=== PATIENT | male | born 1975 | race Caucasian/White ===

== ENCOUNTER 2023-06-09 12:25 | Emergency (ER) | payer OTHER, SELFPAY ==
[2023-06-09] VITALS (7 sets, daily range): BP systolic 135–148; BP diastolic 84–101; PULSE 57–66; RESP 16; TEMP 36.7–36.9; O2SAT 93–97; BMI 30.6
[2023-06-09] MEDS: SIMETHICONE/SOD BICARB/CIT AC 1 EACH GRAN.EF.PK PO (14:08)
--- NOTE | 2023-06-09 14:25 | ED.GENADULT ---
HPI - General Adult General Chief complaint: Unspecified Complaint, Adult Stated complaint: Food lodged in esophagus since last night Time Seen by Provider: 06/09/23 12:30 History of Present Illness HPI narrative: This 48-year-old male comes in with report of food bolus in his esophagus since last evening. He was eating some meat at about 6:30 p.m. and states that he has not been able to successfully swallow since then. This is not a new situation for him. He states that he did have a dilation done about fiber 6 years ago and more recently he has needed to forcefully push food down with swallowing hard. He has not been successful since last evening however. He is otherwise in good health. Related Data Home Medications Medication Instructions Recorded Confirmed metoprolol succinate 50 mg 50 mg PO DAILY 06/09/23 06/09/23 tablet,extended release 24 hr Allergies Allergy/AdvReac Type Severity Reaction Status Date / Time No Known Drug Allergies Allergy Verified 06/09/23 12:33 Review of Systems Status of ROS: Reports: 10 or more systems reviewed and unremarkable except as noted in History and below Narrative: Constitutional: No fevers, no weight gain or loss. Eyes: No discharge. No vision changes. HENT: No congestion, no sore throat, no ear pain. Cardiovascular: No chest pain, no palpitations. Respiratory: No shortness of breath, no wheezes, no cough. Gastrointestinal: No abdominal pain, no vomiting, no diarrhea. Unable to swallow without spitting up. Genitourinary: No dysuria, no hematuria. Musculoskeletal: Normal range of motion. Skin: No rashes, no pruritis. Neurological: No dizziness, weakness, sensory change, speech change. Endo/Heme/Allergies: No bruising or bleeding. No polydipsia. Pysch: no suicidality, no anxiety, no insomnia. All other systems reviewed and are negative. Exam Narrative: Exam Narrative: Constitutional: Well-developed, well-nourished, no acute distress. HEENT: Normocephalic, atraumatic. Neck: Normal range of motion. Nontender. Supple. Heart: Intact distal pulses. Lungs: No chest discomfort. No wheezes, rhonchi, or rales. Abdomen: Nontender. Back: Normal range of motion. Extremities: Normal range of motion. No injury. Skin: Intact. No rash. Warm. No erythema or pallor. Neurologic: No altered sensation. No weakness. Alert and oriented. Psychiatric: No suicidality. No anxiety or depression. No insomnia. Nursing notes and vitals signs are reviewed. Const: Vital Signs, click to edit/add: Vital Signs - 24 hr 06/09/23 12:34 06/09/23 13:17 Temperature 98.5 F Pulse Rate 57 L Pulse Rate [Pulse Oximeter] 59 L Respiratory Rate 16 16 Blood Pressure 135/84 Blood Pressure [Ri ght Upper Arm] 148/99 H Pulse Oximetry 95 94 Oxygen Delivery Me thod Room Air Course Vital Signs Vital signs: Initial Vital Signs Temperature 98.5 F 06/09/23 12:34 Temperature Source Temporal Artery Scan 06/09/23 12:34 Pulse Rate 59 L 06/09/23 12:34 Pulse Rhythm Regular 06/09/23 12:34 Pulse Strength 3+ Normal 06/09/23 12:34 Respiratory Rate 16 06/09/23 12:34 Blood Pressure 148/99 H 06/09/23 12:34 Blood Pressure Mean 115 H 06/09/23 12:34 Blood Pressure Position Sitting 06/09/23 12:34 Pulse Oximetry 95 06/09/23 12:34 Oxygen Delivery Method Room Air 06/09/23 12:34 Vital Signs Temperature 98.5 F 06/09/23 12:34 Pulse Rate 59 L 06/09/23 12:34 Respiratory Rate 16 06/09/23 12:34 Blood Pressure 148/99 H 06/09/23 12:34 Pulse Oximetry 95 06/09/23 12:34 Oxygen Delivery Method Room Air 06/09/23 12:34 Temperature 98.5 F 06/09/23 12:34 Pulse Rate 57 L 06/09/23 13:17 Respiratory Rate 16 06/09/23 13:17 Blood Pressure 135/84 06/09/23 13:17 Pulse Oximetry 94 06/09/23 13:17 Oxygen Delivery Method Room Air 06/09/23 12:34 Medications Administered Medications: Discontinued Medications Generic Name Dose Route Start Last Admin Trade Name Freq PRN Reason Stop Dose Admin Simethicone/Sodium Bicarb/Citric Ac 1 each 06/09/23 13:45 06/09/23 14:08 Simethicone/Sod Bicarb/Cit Ac 1 Each Gran.Ef.Pk PO 06/09/23 13:46 0.5 each ONCE ONE Administration Medical Decision Making MDM Narrative Medical decision making narrative: This patient comes in with a food bolus of meat in his esophagus. He did attempt to swallow initially with water and was unable to do so. An IV was then established where he did receive glucagon 1 mg. He will also was given sublingual nitroglycerin 0.4 mg and pop rocks. After taking the pop rocks he was able to successfully swallow and he feels back to normal. I did speak with the surgeon on-call with the anticipation that he would need an upper GI today but this plan is now canceled. I did advise the patient to follow-up electively for a dilation. Discharge Plan Discharge Clinical Impression: Food impaction of esophagus Patient Disposition: Home, Self-Care Condition: Improved Additional Instructions: Continue current plans. Follow up with primary MD to arrange for upper GI for dilation. Return if worsening. Prescriptions: No Action metoprolol succinate 50 mg tablet extended release 24 hr 50 mg PO DAILY Follow Up/Referrals: Provider,Not a Local [Primary Care Provider] - Stand Alone Forms: [employer] Info Instructions
--- NOTE | 2023-06-09 14:37 | ED.NURSE ---
Patient was able to successfully swallow his food bolus post 1/2 dose of pop rocks. Patient was relieved. Drank 800cc of water and juice. Tolerated this without vomiting.
== END 2023-06-09 14:39 | disposition home or self-care (01) ==
PROVIDERS: Emergency Provider Emergency Medicine Emergency Medical Services
DX: T18.128A Food in esophagus causing other injury, initial encounter (principal)
CPT/HCPCS: 99282; 99283; 99284